=== PATIENT | male | born 1960 | race Caucasian/White ===

== ENCOUNTER 2017-08-17 07:32 | Day surgery (SDC) | payer BC ==
[~2017-08-17 07:32] MED LIST: LIDOCAINE 2% INJ 100 MG/5 ML SDV (FOR ANES.) As Ordered; PROPOFOL 200 MG/20 ML VIAL As Ordered
[2017-08-17] MEDS: NS 1,000 ML IV (07:52)
[2017-08-17] MEDS ORDERED: ONDANSETRON 4MG/2ML VIAL (J2405) As Ordered (09:01)
== END 2017-08-17 09:59 | disposition home or self-care (01) ==
LOC: M OPP 07:32
DX: Z12.11 Encounter for screening for malignant neoplasm of colon (principal); D12.5 Benign neoplasm of sigmoid colon; K21.9 Gastro-esophageal reflux disease without esophagitis; K29.70 Gastritis, unspecified, without bleeding; Z87.11 Personal history of peptic ulcer disease; E78.5 Hyperlipidemia, unspecified; R12 Heartburn; M19.90 Unspecified osteoarthritis, unspecified site; F41.9 Anxiety disorder, unspecified; Z91.030 Bee allergy status; Z79.899 Other long term (current) drug therapy; Z85.828 Personal history of other malignant neoplasm of skin; Z87.891 Personal history of nicotine dependence; Z80.9 Family history of malignant neoplasm, unspecified
CPT/HCPCS: 45380

== ENCOUNTER 2018-08-24 19:27 | Emergency (ER) | payer BC ==
[~2018-08-24] VITALS: Ht 175.3 cm; Wt 90.9 kg
[~2018-08-24 19:27] MED LIST changes: -LIDOCAINE 2% INJ 100 MG/5 ML SDV (FOR ANES.) As Ordered; -PROPOFOL 200 MG/20 ML VIAL As Ordered; +RANI300T; +SIMV40TA2
[2018-08-24] MEDS ORDERED: GABA-843 PO (19:40)
[2018-08-24] MEDS ORDERED: CYCL10TA PO (19:40)
[2018-08-24] MEDS ORDERED: MELO15TA28 PO (19:40)
[2018-08-24] MEDS ORDERED: TIZA2TA PO (19:40)
[2018-08-24] MEDS ORDERED: diazePAM 10 MG TAB PO ONE (20:45)
--- NOTE | 2018-08-24 21:34 | REPVR ---
EXAM: CT Cervical Spine Without Contrast EXAM DATE/TIME: 08/24/2018 8:50 PM CLINICAL HISTORY: 58 years old, male; Pain; Neck pain; Additional info: Neck tenderness, l arm tingling, pain TECHNIQUE: Axial computed tomography images of the cervical spine without intravenous contrast. All CT scans at this facility use at least one of these dose optimization techniques: automated exposure control; mA and/or kV adjustment per patient size (includes targeted exams where dose is matched to clinical indication); or iterative reconstruction. Coronal and sagittal reformatted images were created and reviewed. COMPARISON: No relevant prior studies available. FINDINGS: Vertebrae: Osteopenia. Straightening of the normal cervical lordosis. Mild anterolisthesis of C4 on C5. Alignment otherwise anatomic. No CT evidence of acute fracture, dislocation or subluxation. Vertebral body heights maintained. Discs/Spinal canal/Neural foramina: Mild multilevel degenerative changes, characterized by disc space narrowing, osteophytosis and uncovertebral and facet joint hypertrophy. Mild resultant spinal canal narrowing at C5-C6. Mild to moderate right greater than left neural foraminal narrowing at C5-C6. Mild resultant left neural foraminal narrowing at C6-C7. Soft tissues: Grossly unremarkable. Lungs: Grossly unremarkable. IMPRESSION: 1. Mild multilevel spondylosis and degenerative disc disease, as described above. 2. Additional findings, as above. Electronically signed by: Bebo Hollins On 08/24/2018 21:34:22 PM
[2018-08-24 21:41] VITALS: BP 117/65
[2018-08-24] MEDS ORDERED: TRAM50TA2 PO (21:48)
[2018-08-24] MEDS ORDERED: VALI10TA PO (21:48)
== END 2018-08-24 22:07 | disposition home or self-care (01) ==
LOC: M ED 19:27
DX: M50.30 Other cervical disc degeneration, unspecified cervical region (principal); M47.22 Other spondylosis with radiculopathy, cervical region; Z91.030 Bee allergy status; Z79.899 Other long term (current) drug therapy

== ENCOUNTER → 2018-10-08 | Outpatient (REF) | payer BC ==
[~2018-10-08] MED LIST changes: +CYCL10TA PO; +GABA-843 PO; +MELO15TA28 PO; +TIZA2TA PO; +TRAM50TA2 PO; +VALI10TA PO
[2018-10-08 11:10] LABS: INR 0.94; PROTHROMBIN TIME 12.7 SECONDS (12.1-14.4)
[2018-10-08 11:11] LABS: PARTIAL THROMBOPLASTIN TIME 31.7 SECONDS (25.4-37.6)
== END ==
LOC: M LABDRAW1 10:41
PROVIDERS: ATTEND Physical Medicine & Rehabilitation
DX: Z79.01 Long term (current) use of anticoagulants (principal); D69.1 Qualitative platelet defects

== ENCOUNTER → 2018-12-12 | Outpatient (REF) | payer BC | LOC: M LABDRAW1 13:49 | PROVIDERS: ATTEND Urology | DX: R97.20 Elevated prostate specific antigen [PSA] (principal) | CPT/HCPCS: 36415; G0103 ==

== ENCOUNTER → 2019-02-27 | Outpatient (CLI) | payer OTHER ==
--- NOTE | 2019-02-27 10:51 | ECGEPIP ---
[facility] Test Date: 2019-02-27 Pat Name: DAVID TINOCO Department: Room: - Gender: Male [employer]: [facility] : 1960 Requested By: KYMBERLY Monahan Order Number: [id number] Reading MD: Carrol Leo Measurements Intervals [place] Rate: 69 P: 49 WI: 170 QRS: 8 QRSD: 105 T: -1 QT: 371 QTc: 400 Interpretive Statements SINUS RHYTHM MILD EARLY REPOLAR CHANGES NO PRIOR Electronically Signed on 02-27-2019 10:50:43 EDT by Carrol Leo
== END ==
LOC: M EKG 07:38
PROVIDERS: ATTEND Orthopaedic Surgery
DX: Z01.818 Encounter for other preprocedural examination (principal)

== ENCOUNTER → 2019-08-27 | Outpatient (REF) | payer OTHER ==
[~2019-08-27] MED LIST changes: -SIMV40TA2; +SIMV40TA20
[2019-08-27 12:09] LABS: PLATELET COUNT, AUTOMATED 246 10^3/uL (150-450)
[2019-08-27 12:18] LABS: INR 1.05; PROTHROMBIN TIME 13.5 SECONDS (11.8-14.0)
== END ==
LOC: M LABDRAW1 09:10
PROVIDERS: ATTEND Physical Medicine & Rehabilitation
DX: D69.1 Qualitative platelet defects (principal)

== ENCOUNTER → 2019-09-05 | Outpatient (CLI) | payer OTHER ==
[~2019-09-05] MED LIST changes: +CONRAY-43 43% 50ML VIAL (Q9960) As Ordered ONE; +PROHANCE 279.3MG/ML 5ML VIAL (A9576) As Ordered ONE
--- NOTE | 2019-09-05 09:47 | REP ---
MR ARTHROGRAPHY LEFT SHOULDER: with pre- and post intra-articular gadolinium enhanced saline injected imaging: HISTORY: Superior glenoid labral lesion left shoulder. Rule out read tear. Status post surgery. No comparison imaging. TECHNIQUE: The injection procedure is performed and dictated separately. Pre and post intra-articular gadolinium enhanced saline injected imaging is acquired. Imaging planes include axial, oblique coronal, oblique sagittal and ABER projection images. T1 T2-weighted scans are included with and without fat saturation. MRI FINDINGS: Pre-injection imaging shows widening and some fluid in the acromioclavicular joint. There is superior hypertrophy and some irregularity of the distal clavicle inferiorly is seen. There is a small quantity of glenohumeral joint fluid on pre-injection imaging. Orthopedic anchor pin tracks are noted in the proximal humerus. There is postop of change in the proximal humeral diaphysis indicating biceps tendon transfer. There is advanced swelling and increased signal intensity in the distal supraspinatus tendon on oblique coronal T1-weighted scans consistent with extensive tendinosis. Oblique coronal T2-weighted scans showed T2 hyperintensity within the substance of the distal tendon over approximately 2 cm in length consistent with fairly extensive partial-thickness distal supraspinatus lesion. No retraction is seen. There is some irregularity of the undersurface of the supraspinatus tendon. Post injection shows good filling and enhancement of the articulation. I do not see a superior labral tear. There is fraying and irregularity of the posterior labral cartilage however. This is seen on both pre- and post injection imaging. The infraspinatus and subscapularis tendons appear intact. IMPRESSION: Postoperative changes as above. Advanced tendinosis partial thickness supraspinatus lesion . Fraying of the posterior glenoid labral cartilage. Electronically Signed by Dontrell Mcneill MD 09/05/2019 08:00 P
--- NOTE | 2019-09-05 18:17 | REP ---
Procedure: Left shoulder arthrogram The procedure was performed under the direct supervision of Dr. Mcneill. History: Left shoulder pain The benefits and risks including but not limited to pain, infection, bleeding and anaphylaxis were explained to the patient and informed consent was obtained. Technique: The left glenohumeral joint space was localized using fluoroscopic guidance. The skin was prepped and draped in a sterile fashion. 1% lidocaine was used as a local anesthetic. Using fluoroscopic guidance a 22 gauge spinal needle was inserted and advanced into the joint. 0.5 ml of Conray 43 was injected to verify placement. 11 ml of a solution containing 20 ml of sterile saline and 0.15 ml of ProHance was injected into the joint. The needle was removed and the patient was taken to MRI for postprocedural imaging. The patient tolerated the procedure well and there were no immediate complications. Less than 6 seconds of fluoro time was utilized for this procedure. Electronically Signed by NASREEN Mahan 09/05/2019 04:42 P Electronically Signed by Dontrell Mcneill MD 09/05/2019 06:09 P
== END ==
LOC: M RADPRO 06:27
PROVIDERS: ATTEND Orthopaedic Surgery
DX: S43.432D Superior glenoid labrum lesion of left shoulder, subsequent encounter (principal)
CPT/HCPCS: 23350; 73223; 77002; A9576; Q9960

== ENCOUNTER → 2019-12-16 | Outpatient (CLI) | payer BC ==
[~2019-12-16] MED LIST changes: -CONRAY-43 43% 50ML VIAL (Q9960) As Ordered ONE; +CYCL-707 PO; -CYCL10TA PO; -PROHANCE 279.3MG/ML 5ML VIAL (A9576) As Ordered ONE
== END ==
LOC: M LRY 16:17
PROVIDERS: ATTEND Urology
DX: Z53.9 Procedure and treatment not carried out, unspecified reason (principal)

== ENCOUNTER → 2019-12-16 | Outpatient (CLI) | payer BC ==
[2019-12-19 01:11] LABS: PSA TOTAL 3.9 ng/mL (0.0-4.0)
== END ==
LOC: M LRY 16:20
PROVIDERS: ATTEND Urology
DX: R97.20 Elevated prostate specific antigen [PSA] (principal)

== ENCOUNTER 2021-02-25 17:11 | Emergency (ER) | payer BC ==
[~2021-02-25] VITALS: Ht 175.3 cm; Wt 86.2 kg
[2021-02-25 17:11] VITALS: BP 129/90
[~2021-02-25 17:11] MED LIST changes: +GABA-282 PO; -GABA-843 PO
[2021-02-25] MEDS ORDERED: FAMO40TA3 (17:40)
[2021-02-25] MEDS ORDERED: ONDANSETRON 4 MG ORAL DISINTEGRATING TAB PO ONE (20:55)
[2021-02-25] MEDS ORDERED: ALBUTEROL 90 MCG/ACT 8GM HFA INHALER INH ONE (20:55)
[2021-02-25] MEDS ORDERED: BENZONATATE 100 MG CAP PO ONE (20:55)
[2021-02-25] MEDS ORDERED: PROAAER10 INH (21:02)
[2021-02-25] MEDS ORDERED: ONDA4TAB6 PO (21:02)
[2021-02-25] MEDS ORDERED: TESS100C PO (21:02)
== END 2021-02-25 21:21 | disposition home or self-care (01) ==
LOC: M ED 17:11
DX: U07.1 COVID-19 (principal); R11.0 Nausea; E78.5 Hyperlipidemia, unspecified
CPT/HCPCS: 94640; 99282; Q0162

== ENCOUNTER → 2021-05-31 | Outpatient (CLI) | payer BC ==
[~2021-05-31] MED LIST changes: +FAMO40TA3; +ONDA4TAB6 PO; +PROAAER10 INH; +TESS100C PO
[2021-06-02 00:07] LABS: PSA % FREE 17.4 % (.); PSA FREE 0.82 ng/mL; PSA TOTAL 4.7 ng/mL (0.0-4.0)
== END ==
LOC: M LAB 07:32
PROVIDERS: ATTEND Urology
DX: R97.20 Elevated prostate specific antigen [PSA] (principal); Z12.5 Encounter for screening for malignant neoplasm of prostate

== ENCOUNTER → 2021-09-03 | Outpatient (CLI) | payer OTHER, BC ==
[2021-09-03 13:32] LABS: BASO # 0.1 10^3/uL (0.0-0.2); BASO % 1.3 % (0.0-1.0); EOS # 0.1 10^3/uL (0.0-0.5); HEMATOCRIT 46.1 % (42.0-52.0); HEMOGLOBIN 14.3 g/dl (13.5-17.5); LYMPH # 1.6 10^3/uL (1.5-5.0); LYMPH % 29.9 % (24.0-44.0); MEAN CORPUSCULAR HEMOGLOBIN 27.7 pg (27.0-33.0); MEAN CORPUSCULAR VOLUME 89.3 fl (80.0-96.0); MONO # 0.7 10^3/uL (0.0-0.8); MONO % 12.1 % (2.0-8.0); NEUTROPHILS # 2.9 10^3/uL (1.5-8.5); NEUTROPHILS % 54.1 % (36.0-66.0); PLATELET COUNT, AUTOMATED 240 10^3/uL (150-450); RED BLOOD COUNT 5.16 10^6/uL (4.30-6.10); WHITE BLOOD COUNT 5.4 10^3/uL (4.0-10.0)
[2021-09-03 13:51] LABS: ERYTHROCYTE SEDIMENTATION RATE 4 mm/hr (0-20)
== END ==
LOC: M PLALAB 10:06
PROVIDERS: ATTEND Orthopaedic Surgery
DX: S46.012D Strain of muscle(s) and tendon(s) of the rotator cuff of left shoulder, subsequent encounter (principal)

== ENCOUNTER → 2021-10-26 | Outpatient (CLI) | payer OTHER | LOC: M PLAIMG 08:45 | PROVIDERS: ATTEND Physical Medicine & Rehabilitation | DX: M47.22 Other spondylosis with radiculopathy, cervical region (principal) ==

== ENCOUNTER → 2021-12-09 | Outpatient (CLI) | payer BC ==
[2021-12-10 23:07] LABS: PSA % FREE 16.4 % (.); PSA TOTAL 6.1 ng/mL (0.0-4.0)
== END ==
LOC: M PLALAB 10:40
PROVIDERS: ATTEND Urology
DX: R97.20 Elevated prostate specific antigen [PSA] (principal)

== ENCOUNTER → 2022-06-09 | Outpatient (CLI) | payer BC | LOC: M PLALAB 07:51 | PROVIDERS: ATTEND Urology | DX: R97.20 Elevated prostate specific antigen [PSA] (principal) ==

== ENCOUNTER → 2022-08-03 | Outpatient (CLI) | payer OTHER, BC ==
[~2022-08-03] MED LIST changes: +**SFHN** LIDOCAINE 1% MDV 20ML VIAL ONE; +**SFHN** SODIUM BICARBONATE 8.4% 10MEQ 10ML VIAL ONE; +ISOVUE-300 61% 100ML VIAL ONE
== END ==
LOC: M PLAIMG 11:58
PROVIDERS: ATTEND Orthopaedic Surgery
DX: M19.112 Post-traumatic osteoarthritis, left shoulder (principal)

== ENCOUNTER → 2022-12-19 | Outpatient (CLI) | payer BC ==
[~2022-12-19] MED LIST changes: -**SFHN** LIDOCAINE 1% MDV 20ML VIAL ONE; -**SFHN** SODIUM BICARBONATE 8.4% 10MEQ 10ML VIAL ONE; -ISOVUE-300 61% 100ML VIAL ONE
== END ==
LOC: M LAB 07:53
PROVIDERS: ATTEND Urology
DX: R97.20 Elevated prostate specific antigen [PSA] (principal)

== ENCOUNTER → 2023-06-02 | Outpatient (CLI) | payer BC ==
[~2023-06-02] MED LIST changes: +DIAZ-654 PO; -VALI10TA PO
== END ==
LOC: M WUC 10:52
PROVIDERS: ATTEND Internal Medicine
DX: M47.896 Other spondylosis, lumbar region (principal)

== ENCOUNTER → 2023-09-15 | Outpatient (CLI) | payer BC | LOC: M LAB 07:22 | PROVIDERS: ATTEND Urology | DX: R97.20 Elevated prostate specific antigen [PSA] (principal) ==

== ENCOUNTER → 2024-03-21 | Outpatient (CLI) | payer BC ==
[~2024-03-21] MED LIST changes: +ONDA-282 PO; -ONDA4TAB6 PO
== END ==
LOC: M LAB 07:21
PROVIDERS: ATTEND Urology
DX: R97.20 Elevated prostate specific antigen [PSA] (principal)

== ENCOUNTER → 2024-08-05 | Outpatient (CLI) | payer BC ==
[~2024-08-05] MED LIST changes: +GABA-1172 PO; -GABA-282 PO
[2024-08-05 11:01] LABS: HEMATOCRIT 44.3 % (42.0-52.0); MEAN CORPUSCULAR HEMOGLOBIN 28.1 pg (27.0-33.0); MEAN CORPUSCULAR HGB CONC 31.6 g/dl (32.0-36.5); MEAN CORPUSCULAR VOLUME 88.8 fl (80.0-96.0); PLATELET COUNT, AUTOMATED 223 10^3/uL (150-450); RED BLOOD COUNT 4.99 10^6/uL (4.30-6.10); WHITE BLOOD COUNT 4.7 10^3/uL (4.0-10.0)
[2024-08-05 11:13] LABS: ERYTHROCYTE SEDIMENTATION RATE 12 mm/hr (0-20)
[2024-08-05 11:16] LABS: INR 0.99; PROTHROMBIN TIME 13.4 SECONDS (12.5-14.5)
[2024-08-05 11:27] LABS: ALBUMIN 3.9 G/DL (3.2-5.2); ALKALINE PHOSPHATASE 97 U/L (40-129); ALT/SGPT 35 U/L (7.0-40); AST/SGOT 27 U/L (<34); BILIRUBIN,TOTAL 0.5 MG/DL (0.3-1.2); BLOOD UREA NITROGEN 12 MG/DL (9-23); CALCIUM LEVEL 8.9 MG/DL (8.3-10.6); CARBON DIOXIDE LEVEL 27 MMOL/L (20-31); CHLORIDE LEVEL 109 MMOL/L (98-107); CREATININE FOR GFR 0.91 MG/DL (0.70-1.30); GLOMERULAR FILTRATION RATE > 60.0 (>49); GLUCOSE, FASTING 90 MG/DL (74-106); POTASSIUM SERUM 4.3 MMOL/L (3.5-5.1); SODIUM LEVEL 143 MMOL/L (136-145); TOTAL PROTEIN 6.8 G/DL (5.7-8.2)
== END ==
LOC: M RAD 08:06
PROVIDERS: ATTEND Orthopaedic Surgery
DX: Z01.812 Encounter for preprocedural laboratory examination (principal); M17.11 Unilateral primary osteoarthritis, right knee

== ENCOUNTER → 2024-09-16 | Outpatient (CLI) | payer BC | LOC: M PLALAB 09:25 | PROVIDERS: ATTEND Urology | DX: R97.20 Elevated prostate specific antigen [PSA] (principal) ==

== ENCOUNTER → 2024-10-09 | Outpatient (REF) | payer BC | LOC: M LAB REF 11:47 | PROVIDERS: ATTEND Internal Medicine | DX: R97.20 Elevated prostate specific antigen [PSA] (principal) ==

== ENCOUNTER → 2025-03-21 | Outpatient (CLI) | payer BC | LOC: M LAB 08:29 | PROVIDERS: ATTEND Urology | DX: R97.20 Elevated prostate specific antigen [PSA] (principal) ==